=== PATIENT | female | born 1965 | race American Indian/Alaskan Native ===

== ENCOUNTER 2017-06-20 18:54 | Emergency (ER) | payer OTHER ==
[2017-06-20 18:55] VITALS: BMI 35.1
[2017-06-20 19:02] VITALS: TEMP 97.8
--- NOTE | 2017-06-20 19:58 | ED PDOC ---
Lower Extremity Pain/Injury Time Seen by Provider: 06/20/17 19:23 Chief Complaint (Nursing): Lower Extremity Problem/Injury History Per: Patient Onset/Duration Of Symptoms: Days (3 weeks) Current Symptoms Are (Timing): Still Present Additional History Per: Patient Additional Complaint(s): No PMHx p/w lower back pain and bilateral leg pain x 3 weeks, states pain was initially worse on L leg but now R leg is hurting as well. States pain is worse with standing up from lying position, lying on her L side, relieved by taking pressure off her L buttock area. States pain is severe at times and feels like "labor pains". Denies injury, states she occasionally lifts heavy objects but not often. States she gets shooting pain and numbness in her RLE. States she has 2 herniated discs. Has been taking advil and applying bengay without relief. Denies loss of function, motor weakness, or constant or progressive numbness. No bladder/bowel incontinence. No CP/SOB/SARMIENTO. Past Medical History Reviewed: Historical Data, Nursing Documentation, Vital Signs Vital Signs: Last Vital Signs Temp 97.8 F 06/20/17 18:58 Pulse 82 06/20/17 18:58 Resp 16 06/20/17 18:58 BP 212/109 H 06/20/17 18:58 Pulse Ox 99 06/20/17 18:58 - Surgical History Surgical History: Denies: Pacemaker - Family History Family History: States: Unknown Family Hx - Home Medications Home Medications: Ambulatory Orders Medication Instructions Recorded Aspirin/Acetaminophen/Caffeine 2 each PO PRN PRN 11/09/15 [Excedrin Extra Strength Caplet] Multivit-Min/FA/Calcium/Vit K1 1 each PO DAILY 11/09/15 [One-A-Day Women's 50+ Tablet] Cyclobenzaprine [Cyclobenzaprine 10 mg PO BID #15 tab 06/20/17 HCl] Ketorolac Tromethamine [Toradol] 10 mg PO BID #30 tab 06/20/17 Lidocaine 1 each TP DAILY #10 adh..patch 06/20/17 - Allergies Allergies/Adverse Reactions: Allergies Allergy/AdvReac Type Severity Reaction Status Date / Time No Known Allergies Allergy Verified 11/07/14 14:59 Review of Systems ROS Statement: Except As Marked, All Systems Reviewed And Found Negative Musculoskeletal: Positive for: Back Pain, Leg Pain Physical Exam - Reviewed Nursing Documentation Reviewed: Yes Vital Signs Reviewed: Yes - Physical Exam Appears: Positive for: Well, Non-toxic, No Acute Distress Head Exam: Positive for: ATRAUMATIC, NORMAL INSPECTION, NORMOCEPHALIC Skin: Positive for: Normal Color, Warm, DRY Eye Exam: Positive for: EOMI, Normal appearance, PERRL ENT: Positive for: Normal ENT Inspection Neck: Positive for: Normal, Painless ROM Cardiovascular/Chest: Positive for: Regular Rate, Rhythm Respiratory: Positive for: CNT, Normal Breath Sounds Gastrointestinal/Abdominal: Positive for: Normal Exam, Soft Back: Positive for: Vertebral Tenderness (lumbar, no stepoff/crepitis/swelling/ erythema) Extremity: Positive for: Normal ROM, Capillary Refill (normal), Other (2+ Distal pulses, +Straight leg raise on left). Negative for: Tenderness, Pedal Edema, Calf Tenderness Neurologic/Psych: Positive for: Alert, Oriented - ECG O2 Sat by Pulse Oximetry: 99 Pulse Ox Interpretation: Normal Medical Decision Making Medical Decision MakinPM A/P: No PMHx p/w back pain radiating to bilateral lower extremeties -no neurologic signs, not concerned for cauda equina, spinal stenosis, aaa, or cord impingement syndrome -likely sciatica given quality and nature of pain with positional nature -will get xray of lumbar spine, give meds and re-eval -htn likely 2/2 to pain, will repeat BP after pain medication -will need ortho referral 10PM Patient reporting improvement in pain. Able to ambulate to the bathroom. Will refer to Dr. Vela. Xray appears wnl. Return precautions discussed. BP improved. Disposition - Clinical Impression Clinical Impression: Back pain - Disposition Referrals: Deo Vela MD [Staff Provider] - Tanamy Ch III, MD [Staff Provider] - Disposition: Routine/Home Disposition Time: 22:36 Condition: IMPROVED Prescriptions: Cyclobenzaprine [Cyclobenzaprine HCl] 10 mg PO BID #15 tab Ketorolac Tromethamine [Toradol] 10 mg PO BID #30 tab Lidocaine 1 each TP DAILY #10 adh..patch Instructions: Low Back Pain in Adults Forms: [employer] ([place])
[2017-06-20 22:55] VITALS: BP 150/92; PULSE 71; RESP 18
[2017-06-20 22:56] VITALS: O2SAT 99
--- NOTE | 2017-06-21 11:22 | RAD ---
PROCEDURE: Radiographs of the Lumbar Spine. HISTORY: lower back pain x 3 weeks COMPARISON: No prior. FINDINGS: BONES: There is mild degenerative anterior listhesis of L4 on L5. There is no acute fracture or spondylolysis. DISC SPACES: There is mild multilevel degenerative disc disease with anterior osteophytes, reduced disc heights and multilevel facet arthropathy, worse at L5-S1. OTHER FINDINGS: There are no pathologic soft tissue calcifications. Both sacroiliac joints are normal. IMPRESSION: No acute fracture. Multilevel degenerative disc disease, worse at L5-S1.
== END 2017-06-20 23:00 | disposition home or self-care (01) ==
LOC: H.ER 18:54
DX: M54.5 Low back pain (principal); M51.37 Other intervertebral disc degeneration, lumbosacral region
CPT/HCPCS: 72114; 96372; 99283; J1885